=== PATIENT | female | born 1955 | race Hispanic/Latino ===

== ENCOUNTER → 2022-06-20 | Outpatient (CLI) | payer MEDICARE ==
[~2022-06-20] MED LIST: CRESTOR10 MG PO; MELOXICAM7.5 MG PO; OMEPRAZOLE40 MG PO; VASOTEC10 M1 PO
== END ==
LOC: US 11:24
PROVIDERS: ATTEND Internal Medicine Gastroenterology
DX: R10.13 Epigastric pain (principal); R63.0 Anorexia; R14.0 Abdominal distension (gaseous); K64.8 Other hemorrhoids; R11.0 Nausea; K58.0 Irritable bowel syndrome with diarrhea; Z68.30 Body mass index [BMI] 30.0-30.9, adult
CPT/HCPCS: 76700

== ENCOUNTER → 2022-07-28 | Outpatient (CLI) | payer MEDICARE | LOC: NM 09:02 | PROVIDERS: ATTEND Internal Medicine Gastroenterology | DX: R10.13 Epigastric pain (principal); R63.0 Anorexia; K64.8 Other hemorrhoids; R14.0 Abdominal distension (gaseous); R11.0 Nausea; K58.0 Irritable bowel syndrome with diarrhea; Z68.30 Body mass index [BMI] 30.0-30.9, adult | CPT/HCPCS: 78264; A9541 ==